=== PATIENT | female | born 1995 | race Two or more races ===

== ENCOUNTER 2023-11-01 17:21 | Inpatient (IN) | payer OTHER ==
[~2023-11-01] VITALS: Ht 154.9 cm; Wt 77.1 kg
[2023-11-01 17:56] LABS: HEMATOCRIT 37.7 % (36.0-45.00); MEAN CORPUSCULAR HEMOGLOBIN 33.3 pg (27.00-32.0); MEAN CORPUSCULAR HGB CONC 34.3 g/dl (32.0-36.0); PLATELET COUNT 242 K/uL (150-450); RED BLOOD COUNT 3.89 M/uL (4.00-6.00); RED CELL DISTRIBUTION WIDTH 14.7 % (11.5-14.5)
[2023-11-01 17:58] LABS: PH,URINE 6.5 (5.0-8.0); URINE APPEARANCE Clear; URINE BILIRRUBIN Negative (NEGATIVE); URINE BLOOD Moderate; URINE COLOR Yellow; URINE GLUCOSE Negative (NEGATIVE); URINE LEUKOCYTE Trace; URINE NITRATE Negative; URINE PROTEIN >=1000 (NEGATIVE)
[2023-11-01 17:59] LABS: URINE BACTERIA 1035.6 uL (0.0-1933); URINE EPITHELIAL CELLS 15.1 uL (0.0-38.8); URINE RBC 4.4 uL (0.0-20.8); URINE WBC 12.9 uL (0.0-23.2)
[2023-11-01] MEDS ORDERED: PRENATABS RX T1 EACH PO (18:02)
[2023-11-01 18:13] LABS: FIBRINOGEN 425 mg/dL (187.0-446.0); INR < 0.93; PARTIAL THROMBOPLASTIN TIME 26.2 SECONDS (22.0-34.0); PROTHROMBIN TIME 9.1 SECONDS (9.0-11.5)
[2023-11-01 18:17] LABS: ALBUMIN 2.4 gm/dL (3.4-5.0); BILIRUBIN TOTAL 0.42 mg/dL (0.3-1.2); CALCIUM 8.4 mg/dL (8.5-10.1); CREATININE SERUM 0.94 mg/dL (0.55-1.02); GFR 70.4; GLOBULINA 3.4 G/DL (2.4-3.5); POTASSIUM 5.35 mEq/L (3.5-5.1); TOTAL PROTEIN 5.8 gm/dL (6.4-8.2)
[2023-11-01 18:21] LABS: URINE YEAST NEGATIVE /hpf
[2023-11-02 06:10] LABS: HEMATOCRIT 33.9 % (36.0-45.00); HEMOGLOBIN 11.4 g/dL (12.0-15.00); MEAN CELL VOLUME 99.2 fL (80.00-100.00); MEAN CORPUSCULAR HEMOGLOBIN 33.3 pg (27.00-32.0); MEAN CORPUSCULAR HGB CONC 33.5 g/dl (32.0-36.0); PLATELET COUNT 223 K/uL (150-450); RED BLOOD COUNT 3.42 M/uL (4.00-6.00)
[2023-11-05] MEDS ORDERED: IBUPROFEN800 MG PO (07:32)
[2023-11-05] MEDS ORDERED: LABETALOL HCL200 MG PO (07:32)
== END 2023-11-05 14:08 | disposition home or self-care (01) | DRG 788 ==
LOC: LDR 17:21 → OB/GYN 11-03 13:02
PROVIDERS: ADMIT Specialist; ATTEND Specialist
PROC: 4A1HXCZ Monitoring of Products of Conception, Cardiac Rate, External Approach (ICD-10-PCS; 2023-11-01)
PROC: 10D00Z1 Extraction of Products of Conception, Low, Open Approach (ICD-10-PCS; principal; 2023-11-01 22:00)
DX: O15.1 Eclampsia complicating labor (principal); Z3A.37 37 weeks gestation of pregnancy; Z37.0 Single live birth; Z20.822 Contact with and (suspected) exposure to COVID-19
CPT/HCPCS: 70544

== ENCOUNTER 2023-11-22 06:07 | Emergency (ER) | payer OTHER ==
[~2023-11-22] VITALS: Ht 157.5 cm; Wt 68.0 kg
[~2023-11-22 06:07] MED LIST: IBUPROFEN800 MG PO; LABETALOL HCL200 MG PO; PRENATABS RX T1 EACH PO
[2023-11-22 08:05] LABS: URINE APPEARANCE Clear; URINE BILIRRUBIN Negative (NEGATIVE); URINE BLOOD Negative; URINE COLOR Yellow; URINE GLUCOSE Negative (NEGATIVE); URINE LEUKOCYTE Trace; URINE NITRATE Negative; URINE PROTEIN Negative (NEGATIVE); URINE UROBILINOGEN 0.2 E.U./dl
[2023-11-22 08:06] LABS: HEMATOCRIT 34.6 % (36.0-45.00); HEMOGLOBIN 11.9 g/dL (12.0-15.00); MEAN CELL VOLUME 98.6 fL (80.00-100.00); MEAN CORPUSCULAR HGB CONC 34.4 g/dl (32.0-36.0); PLATELET COUNT 461 K/uL (150-450); RED BLOOD COUNT 3.51 M/uL (4.00-6.00); RED CELL DISTRIBUTION WIDTH 13.1 % (11.5-14.5); URINE BACTERIA 1073.3 uL (0.0-1933); URINE EPITHELIAL CELLS 14.5 uL (0.0-38.8); URINE WBC 19.4 uL (0.0-23.2)
[2023-11-22 08:32] LABS: URINE RBC 0.5 uL (0.0-20.8)
[2023-11-22 08:43] LABS: ALBUMIN 3.4 gm/dL (3.4-5.0); BILIRUBIN TOTAL 0.58 mg/dL (0.3-1.2); CALCIUM 10.9 mg/dL (8.5-10.1); CREATININE SERUM 0.89 mg/dL (0.55-1.02); GFR 74.98; GLOBULINA 4.3 G/DL (2.4-3.5); POTASSIUM 4.23 mEq/L (3.5-5.1); TOTAL PROTEIN 7.7 gm/dL (6.4-8.2)
== END 2023-11-22 10:15 | disposition home or self-care (01) ==
LOC: ER 06:07
PROVIDERS: General Practice
DX: O90.89 Other complications of the puerperium, not elsewhere classified (principal); O15.2 Eclampsia complicating the puerperium; R00.2 Palpitations; I10 Essential (primary) hypertension